=== PATIENT | male | born 1970 | race Caucasian/White ===

== ENCOUNTER 2016-11-16 13:20 | Emergency (ER) | payer OTHER ==
[~2016-11-16] VITALS: Ht 182.9 cm; Wt 80.7 kg
[2016-11-16 13:36] VITALS: BP 118/69
[2016-11-16] MEDS ORDERED: HYDROCODONE/APAP 5/325MG 1 EACH TABLET PO ONE (14:00)
[2016-11-16] MEDS ORDERED: HYDROCODONE/APAP 5/325MG 1 EACH TABLET ONE (14:57)
== END 2016-11-16 15:10 | disposition home or self-care (01) ==
LOC: ER 13:28
DX: S20.211A Contusion of right front wall of thorax, initial encounter (principal); G35 Multiple sclerosis; W01.198A Fall on same level from slipping, tripping and stumbling with subsequent striking against other object, initial encounter; Y93.9 Activity, unspecified; Y92.9 Unspecified place or not applicable; Y99.9 Unspecified external cause status
CPT/HCPCS: 71010; 99283; A4606; Z7610

== ENCOUNTER 2018-08-10 14:42 | Emergency (ER) | payer OTHER ==
[~2018-08-10] VITALS: Ht 182.9 cm; Wt 78.6 kg
--- NOTE | 2018-08-10 14:45 | NUR ---
CALLED TO TRIAGE,NO ANSWER
[2018-08-10 15:32] VITALS: BP 137/77
[2018-08-10] MEDS ORDERED: TDAP [DIPH/PERTUSSIS/TET] 0.5 ML VIAL IM ONE (16:32)
[2018-08-10] MEDS: TDAP [DIPH/PERTUSSIS/TET] 0.5 ML VIAL IM ONE (16:38)
== END 2018-08-10 16:58 | disposition home or self-care (01) ==
LOC: ER 14:49
DX: S00.03XA Contusion of scalp, initial encounter (principal); S00.511A Abrasion of lip, initial encounter; G35 Multiple sclerosis; W10.8XXA Fall (on) (from) other stairs and steps, initial encounter; Y93.89 Activity, other specified; Y92.89 Other specified places as the place of occurrence of the external cause; Y99.8 Other external cause status
CPT/HCPCS: 90471; 90715; 99283; A4606; Z7610